=== PATIENT | male | born 1950 | race Two or more races ===

== ENCOUNTER → 2017-03-29 | Outpatient (CLI) | payer MEDICARE, OTHER ==
[~2017-03-29] MED LIST: ASPI-482 PO; FERR-26 PO; GLIM2TAB2 PO; LISI-338 PO; NIFE60TA16 PO; TAMS0.4C2 PO; TRAM50TA PO
[2017-03-29 09:16] LABS: BASO # 0.1 x10^3/uL (0.0-0.2); BASO % 3 % (0-3); EOS % 11 % (0-3); HEMATOCRIT 40.1 % (39.0-53.0); HEMOGLOBIN 13.8 g/dL (13.0-17.5); LYMPH # 1.5 x10^3/uL (1.0-4.8); LYMPH % 29 % (24-48); MEAN CORPUSCULAR HEMOGLOBIN 31 pg (25-35); MEAN CORPUSCULAR HGB CONC 34 g/dL (31-37); MEAN CORPUSCULAR VOLUME 90 fL (79-100); MONO % 10 % (0-9); NEUT % 47 % (31-73); PLATELET COUNT 317 x10^3/uL (140-400); RED BLOOD COUNT 4.45 x10^6/uL (4.30-5.70); RED CELL DISTRIBUTION WIDTH 14.2 % (11.5-14.5); WHITE BLOOD COUNT 5.1 x10^3/uL (4.0-11.0)
[2017-03-29 09:17] LABS: ALBUMIN 3.8 g/dL (3.4-5.0); CALCIUM 8.9 mg/dL (8.5-10.1); GFR 74.8
[2017-03-29 09:18] LABS: BILIRUBIN,URINE NEGATIVE (NEG); GLUCOSE,URINE NEGATIVE (NEG); NITRITE,URINE NEGATIVE (NEG); PROTEIN,URINE NEGATIVE (NEG-TRACE); UROBILINOGEN,URINE 0.2 mg/dL (0.2 mg/dL)
[2017-03-29 09:27] LABS: INR 1.1 (0.8-1.1); PROTHROMBIN TIME PATIENT 13.4 SEC (11.7-14.0)
[2017-03-29 09:50] LABS: BACTERIA,URINE 0 /HPF (0-FEW); SQUAMOUS EPITHELIAL CELL,UR FEW /LPF; WBC,URINE RARE /HPF (0-4)
--- NOTE | 2017-03-29 13:30 | RAD ---
Indication preop. Anticipated knee replacement. PA and lateral views of the chest were obtained. Comparison is made to an examination November 07, 2009. The heart and pulmonary vessels appear normal. The lungs are clear of acute infiltrates. There is no pleural fluid or pneumothorax. There has not been a significant change when compared to the previous exam. IMPRESSION: No acute or focal process. No significant change
--- NOTE | 2017-03-29 14:07 | EKG ---
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
== END | disposition home or self-care (01) ==
LOC: SURGPAT 10:58
PROVIDERS: ATTEND Orthopaedic Surgery
DX: Z01.818 Encounter for other preprocedural examination (principal); I10 Essential (primary) hypertension; M17.31 Unilateral post-traumatic osteoarthritis, right knee
CPT/HCPCS: 36415; 71020; 80048; 81001; 82040; 85027; 85610; 85651; 85730; 87086; 87641; 93005

== ENCOUNTER 2017-04-20 05:55 | Inpatient (IN) | payer MEDICARE, OTHER ==
[2017-04-20] VITALS (9 sets, daily range): BP systolic 120–150; BP diastolic 70–84
[~2017-04-20] VITALS: Ht 167.6 cm; Wt 83.9 kg
[2017-04-20] MEDS ORDERED: MORPHINE SULFATE 5 MG, KETOROLAC TROMETHAMINE 30 MG, ROPIVacaine 0.5% PF 60 ML, EPINEPH... INT ART ONE ×5 (06:00)
[2017-04-20] MEDS ORDERED: TRANEXAMIC ACID 1,000 MG in IV NS 50ML -- 1ST BAG INJ ONE (06:00)
[2017-04-20] MEDS ORDERED: HYDROcodone/APAP 7.5/325MG 1 TAB TABLET PO PRN (06:00)
[2017-04-20] MEDS ORDERED: MELOXICAM 7.5 MG TABLET PO PRN (06:00)
[2017-04-20] MEDS ORDERED: PROPOFOL 20 ML IV ONE (06:58)
[2017-04-20] MEDS ORDERED: fentaNYL PF VIAL 100 MCG/2 ML VIAL ONE ×2 (06:58→09:01)
[2017-04-20] MEDS ORDERED: LIDOCAINE 2% PF Vial for OR 5 ML VIAL. ONE (06:58)
[2017-04-20] MEDS ORDERED: PROCHLORPERAZINE 10 MG/2 ML VIAL. IV PRN ×2 (07:00→12:30)
[2017-04-20] MEDS ORDERED: LIDOCAINE 1% 1 ML SYRINGE. ID PRN (07:00)
[2017-04-20] MEDS ORDERED: IV RINGERS,LACTATED 1000ML 1,000 ML IV SCH (07:00)
[2017-04-20] MEDS ORDERED: HYDROmorphone 2 MG/ML VIAL IV PRN (07:00)
[2017-04-20] MEDS ORDERED: ONDANSETRON PF 4 MG/2 ML VIAL. IV PRN (07:00)
[2017-04-20] MEDS ORDERED: fentaNYL PF VIAL 100 MCG/2 ML VIAL IV PRN ×3 (07:00→12:30)
[2017-04-20] MEDS ORDERED: MORPHINE SULFATE 2 MG/ML DISP.SYRIN. IV PRN ×2 (07:00→12:30)
[2017-04-20 07:26] LABS: INR 1.1 (0.8-1.1); PROTHROMBIN TIME PATIENT 13.6 SEC (11.7-14.0)
[2017-04-20] MEDS ORDERED: ONDANSETRON PF 4 MG/2 ML VIAL. ONE (07:50)
[2017-04-20] MEDS ORDERED: SEVOFLURANE 61 TO 120 MINUTES. IH ONE (07:50)
[2017-04-20] MEDS ORDERED: DEXAMETHASONE SOD PHOS 20 MG/5 ML VIAL. ONE (07:50)
[2017-04-20] MEDS ORDERED: ePHEDrine PF IN SALINE 50 MG/5 ML DISP.SYRIN IV ONE (08:00)
[2017-04-20] MEDS ORDERED: TRANEXAMIC ACID 1,000 MG in IV NS 50ML -- 2ND BAG INJ ONE (08:00)
[2017-04-20] MEDS: fentaNYL PF VIAL 100 MCG/2 ML VIAL IV PRN ×2 (10:29→10:43)
[2017-04-20] MEDS ORDERED: INSULIN ASPART 100 UNIT/ML 10ML VIAL. SQ ONE ×2 (11:09→11:30)
[2017-04-20] MEDS ORDERED: PNEUMOCOCCAL VAX SCREEN BY RX. MC ONE (12:15)
[2017-04-20] MEDS ORDERED: IV DEXTROSE 5 %-0.45 % NACL 1,000 ML IV SCH (12:28)
[2017-04-20] MEDS ORDERED: oxyCODONE/APAP 5/325 1 TAB TABLET PO PRN (12:30)
[2017-04-20] MEDS ORDERED: MORPHINE SULFATE 4 MG/ML DISP.SYRIN. IV PRN (12:30)
[2017-04-20] MEDS ORDERED: diphenhydrAMINE 50 MG/ML VIAL IV PRN (12:30)
[2017-04-20] MEDS ORDERED: traMADol 50 MG TABLET PO PRN ×2 (12:30)
[2017-04-20] MEDS ORDERED: HYDROcodone/APAP 10/325 1 TAB TABLET PO PRN (12:30)
[2017-04-20] MEDS ORDERED: oxyCODONE/APAP 7.5/325 1 TAB TABLET PO PRN (12:30)
[2017-04-20] MEDS ORDERED: ZOLPIDEM 5 MG TABLET. PO PRN (12:30)
[2017-04-20] MEDS ORDERED: ACETAMINOPHEN 325 MG TABLET. PO PRN (12:30)
[2017-04-20] MEDS ORDERED: DEXTROSE 50% 25 GM / 50ML DISP.SYRIN. IV PRN (12:30)
[2017-04-20] MEDS ORDERED: CALCIUM CARBONATE 500 MG TAB.CHEW PO PRN (12:30)
[2017-04-20] MEDS ORDERED: 0.9 % SODIUM CHLORIDE 10 ML DISP.SYRIN. IV PRN (12:30)
--- NOTE | 2017-04-20 12:59 | PDOC ---
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 We had discussed risks benefits and postoperative course of total knee arthroplasty including the possibility of infection nerve or blood vessel damage medical or other anesthetic complications premature wear or loosening continued pain among others all his questions were answered he wants to proceed with surgical evaluation and treatment Operative text: Patient was identified procedure verified after adequate amounts of general anesthesia were administered the right lower extremity was prepped and draped in standard sterile fashion with a thigh tourniquet. After timeout was performed patient procedure identified and verified, a midline incision was made medial parapatellar approach was carried out patella was everted fat pad was excised bleeding points were controlled by electrocautery and using the [employer] device distal femur was drilled for an intramedullary guide and due to his significant flexion contracture an additional 2 mm was taken off distally. Femur was sized at a size 8 AP and chamfer cuts were then made with the ACL excised PCL preserved menisci were excised and the extra medullary tibial cutting guide was then placed and aligned slightly below the level of the medial tibial erosion. Tibial cut was made and a size G tibial guide was pinned in place a size 8 femur and a 10 mm spacer to picking tech ligament balance flexion and extension stability. Patella was then measured at a 24 mm thickness postresection was 13 mm. A 35 mm patellar button was medialized with lateral bone removed to prevent any bony impingement. Patellar tracking was noted to be excellent. Femoral lug holes was then drilled tibia was drilled and broached trial components were removed irrigation carried out normal saline solution and bleeding points were controlled with the aqua Mantis device in the intracapsular area bony surfaces were then dried and the following Priya persona components were placed with polymethylmethacrylate cement consisting of a size G tibia a size 8 standard femur and a 35 mm vitamin E patella. A 10 mm spacer was placed with the knee held out in extension where excess cement was removed and held until the knee was stable and cement cured. Any excess cement was removed from the edges particularly of the tibial component and a 10 mm medial congruent vitamin E spacer was snapped and locked in place again excellent balance stability was noted in both flexion and extension as well as patellar tracking. Additional thorough irrigation was carried out normal saline solution using pulse lavage control bleeding points was again checked Hemovac drain was placed as was a pain catheter the pain catheter mixture was injected into the joint capsule and surrounding areas closure of the retinaculum was accomplished with #2 Ethibond in an interrupted fashion supported by #1 Vicryl in an interrupted and running fashion for additional support. Subcutaneous closure accomplished with buried Vicryl suture skin closure with mónica sterile dressings were applied tourniquet was not applied throughout the procedure patient was returned to recovery room in stable condition having tolerated the procedure well YESENIA GRAY MD Apr 20, 2017 12:59
[2017-04-20] MEDS: MULTIVITAMIN with MINERAL TABLET. PO SCH (13:43)
[2017-04-20] MEDS: LISINOPRIL 5 MG TABLET. PO SCH (13:44)
[2017-04-20] MEDS: SENNOSIDES/DOCUSATE 8.6/50MG TABLET. PO SCH (13:44)
--- NOTE | 2017-04-20 13:52 | RAD ---
Portable right knee, 2 views, 04/20/2017: History: Postop evaluation Comparison is made to a study from 03/17/2017. There has been interval insertion of a total knee prosthesis in satisfactory position. There is an old healed fracture of the distal right femoral shaft with a screw fragment and a fragment of a surgical band in place at that level. Surgical skin clips and a drain overlie the operative site anteriorly at the knee. There is no evidence of a retained surgical instrument, needle or radiopaque sponge on these 2 views.
[2017-04-20] MEDS ORDERED: GLIMEPIRIDE 2 MG TABLET. PO SCH (14:00)
[2017-04-20] MEDS ORDERED: WARFARIN 7.5 MG TABLET. PO ONE (16:00)
[2017-04-20] MEDS: KETOROLAC TROMETHAMINE 10 MG TABLET PO SCH (16:57)
[2017-04-20] MEDS: FERROUS SULFATE 325 MG TABLET. PO SCH (16:58)
[2017-04-20] MEDS: TAMSULOSIN 0.4 MG CAP.ER.24H. PO SCH (21:08)
[2017-04-21 02:56] VITALS: BP 121/71
[2017-04-21 04:52] LABS: INR 1.4 (0.8-1.1); PROTHROMBIN TIME PATIENT 16.7 SEC (11.7-14.0)
[2017-04-21] MEDS: KETOROLAC TROMETHAMINE 10 MG TABLET PO SCH ×4 (05:41→17:55)
[2017-04-21] MEDS ORDERED: MAGNESIUM HYDROXIDE 2,400 MG/30 ML ORAL.SUSP. PO PRN (06:00)
[2017-04-21 06:27] VITALS: BP 131/82
[2017-04-21] MEDS ORDERED: FERROUS SULFATE 325 MG TABLET. PO SCH (09:00)
[2017-04-21] MEDS: SENNOSIDES/DOCUSATE 8.6/50MG TABLET. PO SCH (09:09)
[2017-04-21] MEDS: ASPIRIN ENTERIC COATED 81 MG TABLET.DR. PO SCH (09:09)
[2017-04-21] MEDS: FERROUS SULFATE 325 MG TABLET. PO SCH ×2 (09:09→16:51)
[2017-04-21] MEDS: MULTIVITAMIN with MINERAL TABLET. PO SCH (09:09)
[2017-04-21] MEDS: GLIMEPIRIDE 2 MG TABLET. PO SCH (09:09)
[2017-04-21] MEDS: LISINOPRIL 5 MG TABLET. PO SCH (09:10)
[2017-04-21] MEDS ORDERED: BISACODYL 10 MG SUPP.RECT. PR PRN (16:00)
[2017-04-21] MEDS ORDERED: WARFARIN 5 MG TABLET. PO ONE (16:00)
--- NOTE | 2017-04-21 17:13 | PDOC ---
PROGRESS NOTES Subjective Subjective Problems overnight: Pain is well-controlled he is very pleased with his progress getting up and around well. Feels better than he did before surgery Objective Vital Signs Vital Signs Date Time Temp Pulse Resp B/P (MAP) Pulse Ox O2 Delivery O2 Flow Rate FiO2 04/21/17 09:10 62 131/82 04/21/17 08:00 Room Air 04/21/17 06:27 98.5 20 94 98.5 04/20/17 11:23 2 Physical Exam On exam drain and pain catheter intact he has excellent motion stability distal neurovascular status intact incision clean dry intact Labs Laboratory Tests Test 04/20/17 06:30 04/20/17 06:40 04/20/17 10:23 04/20/17 10:24 Prothrombin Time 13.6 SEC (11.7-14.0) Prothromb Time International Ratio 1.1 (0.8-1.1) Activated Partial Thromboplast Time 29 SEC (24-38) Glucose (Fingerstick) 106 mg/dL (70-99) 231 mg/dL (70-99) 218 mg/dL (70-99) Test 04/20/17 10:58 04/20/17 16:49 04/20/17 20:30 04/21/17 03:50 Glucose (Fingerstick) 230 mg/dL (70-99) 186 mg/dL (70-99) 176 mg/dL (70-99) Hemoglobin 10.9 g/dL (13.0-17.5) Prothrombin Time 16.7 SEC (11.7-14.0) Prothromb Time International Ratio 1.4 (0.8-1.1) Test 04/21/17 06:40 04/21/17 11:07 04/21/17 16:42 Glucose (Fingerstick) 108 mg/dL (70-99) 128 mg/dL (70-99) 127 mg/dL (70-99) Laboratory Tests Test 04/20/17 20:30 04/21/17 03:50 04/21/17 06:40 04/21/17 11:07 Glucose (Fingerstick) 176 mg/dL (70-99) 108 mg/dL (70-99) 128 mg/dL (70-99) Hemoglobin 10.9 g/dL (13.0-17.5) Prothrombin Time 16.7 SEC (11.7-14.0) Prothromb Time International Ratio 1.4 (0.8-1.1) Test 04/21/17 16:42 Glucose (Fingerstick) 127 mg/dL (70-99) Imaging Postop x-rays show total knee arthroplasty in excellent position Assessment Assessment POD# [1], S/P [right total knee arthroplasty] Problems: Plan Plan of Care Continue to advance physical therapy weightbearing as tolerated Coumadin anticoagulation YESENIA GRAY MD Apr 21, 2017 17:12
[2017-04-21 18:03] VITALS: BP 130/72
[2017-04-21] MEDS: HYDROcodone/APAP 7.5/325MG 1 TAB TABLET PO PRN (19:49)
[2017-04-21] MEDS: TAMSULOSIN 0.4 MG CAP.ER.24H. PO SCH (21:00)
[2017-04-22] MEDS: HYDROcodone/APAP 7.5/325MG 1 TAB TABLET PO PRN ×4 (00:59→21:05)
[2017-04-22] MEDS: KETOROLAC TROMETHAMINE 10 MG TABLET PO SCH ×4 (00:59→18:15)
[2017-04-22 06:10] VITALS: BP 126/66
[2017-04-22 07:23] LABS: HEMATOCRIT 30.2 % (39.0-53.0); HEMOGLOBIN 10.1 g/dL (13.0-17.5)
[2017-04-22 07:33] LABS: INR 1.5 (0.8-1.1); PROTHROMBIN TIME PATIENT 17.5 SEC (11.7-14.0)
[2017-04-22] MEDS: MULTIVITAMIN with MINERAL TABLET. PO SCH (08:29)
[2017-04-22] MEDS: SENNOSIDES/DOCUSATE 8.6/50MG TABLET. PO SCH (08:29)
[2017-04-22] MEDS: ASPIRIN ENTERIC COATED 81 MG TABLET.DR. PO SCH (08:30)
[2017-04-22] MEDS: FERROUS SULFATE 325 MG TABLET. PO SCH ×2 (08:30→16:44)
[2017-04-22] MEDS: GLIMEPIRIDE 2 MG TABLET. PO SCH (08:30)
[2017-04-22] MEDS: LISINOPRIL 5 MG TABLET. PO SCH (08:31)
--- NOTE | 2017-04-22 14:45 | PDOC ---
ORTHO PROGRESS NOTES Subjective Patient reports that he is doing well. Pain is well-controlled. Denies numbness or tingling. Denies chest pain or shortness of breath. He is doing well with therapy Post-op Day: 2 (Right total knee arthroplasty) Vitals Vital Signs Date Time Temp Pulse Resp B/P (MAP) Pulse Ox O2 Delivery O2 Flow Rate FiO2 04/22/17 14:05 Room Air 04/22/17 08:31 65 126/66 04/22/17 06:10 98.4 18 95 98.4 Labs Laboratory Tests Test 04/20/17 16:49 04/20/17 20:30 04/21/17 03:50 04/21/17 06:40 Glucose (Fingerstick) 186 mg/dL (70-99) 176 mg/dL (70-99) 108 mg/dL (70-99) Hemoglobin 10.9 g/dL (13.0-17.5) Prothrombin Time 16.7 SEC (11.7-14.0) Prothromb Time International Ratio 1.4 (0.8-1.1) Test 04/21/17 11:07 04/21/17 16:42 04/21/17 20:58 04/22/17 05:50 Glucose (Fingerstick) 128 mg/dL (70-99) 127 mg/dL (70-99) 157 mg/dL (70-99) 100 mg/dL (70-99) Test 04/22/17 06:56 04/22/17 10:44 Hemoglobin 10.1 g/dL (13.0-17.5) Hematocrit 30.2 % (39.0-53.0) Mean Corpuscular Hemoglobin Concent 34 g/dL (31-37) Prothrombin Time 17.5 SEC (11.7-14.0) Prothromb Time International Ratio 1.5 (0.8-1.1) Glucose (Fingerstick) 170 mg/dL (70-99) Laboratory Tests Test 04/21/17 16:42 04/21/17 20:58 04/22/17 05:50 04/22/17 06:56 Glucose (Fingerstick) 127 mg/dL (70-99) 157 mg/dL (70-99) 100 mg/dL (70-99) Hemoglobin 10.1 g/dL (13.0-17.5) Hematocrit 30.2 % (39.0-53.0) Mean Corpuscular Hemoglobin Concent 34 g/dL (31-37) Prothrombin Time 17.5 SEC (11.7-14.0) Prothromb Time International Ratio 1.5 (0.8-1.1) Test 04/22/17 10:44 Glucose (Fingerstick) 170 mg/dL (70-99) Notes Patient is awake and alert sitting up in chair. Breathing unlabored, no acute distress. Incision covered with dressing, dressing is intact no significant drainage. Moderate edema. Neurovascular intact right lower extremity Problems: (1) Degenerative joint disease of right knee Assessment and Plan Anticoagulation per pharmacy Pain controlled Anticipate discharge tomorrow Weightbearing as tolerated, PT OT Problem Qualifiers (1) Degenerative joint disease of right knee: Osteoarthritis type: primary Qualified Codes: M17.11 - Unilateral primary osteoarthritis, right knee KENNY TEIXEIRA SALESFORCE CONSULTANT Apr 22, 2017 14:45
--- NOTE | 2017-04-22 15:35 | PATHOLOGY ---
PATHOLOGY REPORT * * * * * * * * FINAL DIAGNOSIS: Bone and soft tissue, "right knee bone and tissue," joint resection: - Degeneration of cartilage consistent with degenerative joint disease. - Chronic synovitis. ([facility]; 04/22/2017) REPORT ELECTRONICALLY SIGNED BY: Brian Yoon M.D. DATE/TIME: 04/22/2017 15:34 * * * * * * * * GROSS PATHOLOGY: Received in formalin labeled "Navdeep Bach, right knee bone and tissue," are multiple segments of bone, including tibial plateau, measuring 10.8 x 9.9 x 2.9 cm in aggregate dimensions admixed with soft tissue; meniscus is present. The specimen shows focal eburnation of the articular surfaces. Mine Engineering Supervisor sections of bone and soft tissue are submitted in cassette A1, following decalcification. ([facility]; 04/21/2017) INITIAL CPT CODE(S): A; 15089, 56737 Professional services performed [place] [facility] [place] [address] Technical services performed by [facility] at [address] [place] [address]. SPECIMEN(S) RECEIVED: A.Right knee bone and tissue CLINICAL HISTORY: Post traumatic OA PATIENT: STEPHANIE BACH /AGE: 3 1950 (Age: 67) PATIENT #: [id number] ALT CASE #: SPECIMEN COLLECTION DATE: 04/20/2017 SPECIMEN RECEIVED DATE: 04/20/2017 [facility] - [address] [place] [address] - PHONE: [phone] * * * END OF REPORT * * *
[2017-04-22] MEDS ORDERED: WARFARIN 5 MG TABLET. PO ONE (16:00)
[2017-04-22 18:02] VITALS: BP 129/65
[2017-04-22] MEDS: TAMSULOSIN 0.4 MG CAP.ER.24H. PO SCH (21:01)
[2017-04-23] MEDS: KETOROLAC TROMETHAMINE 10 MG TABLET PO SCH ×3 (00:06→12:16)
[2017-04-23 06:08] VITALS: BP 121/70
[2017-04-23 07:40] LABS: HEMATOCRIT 26.4 % (39.0-53.0); HEMOGLOBIN 9.2 g/dL (13.0-17.5)
[2017-04-23 07:50] LABS: INR 1.7 (0.8-1.1); PROTHROMBIN TIME PATIENT 18.5 SEC (11.7-14.0)
[2017-04-23] MEDS: FERROUS SULFATE 325 MG TABLET. PO SCH (08:04)
[2017-04-23] MEDS: SENNOSIDES/DOCUSATE 8.6/50MG TABLET. PO SCH (08:05)
[2017-04-23] MEDS: GLIMEPIRIDE 2 MG TABLET. PO SCH (08:05)
[2017-04-23] MEDS: ASPIRIN ENTERIC COATED 81 MG TABLET.DR. PO SCH (08:06)
[2017-04-23] MEDS: LISINOPRIL 5 MG TABLET. PO SCH (08:06)
[2017-04-23] MEDS: MULTIVITAMIN with MINERAL TABLET. PO SCH (08:07)
[2017-04-23] MEDS ORDERED: HYDR-2762 PO (11:06)
--- NOTE | 2017-04-23 11:42 | PDOC ---
PROGRESS NOTES Subjective Subjective Problems overnight: Doing very well with therapy pain well-controlled no complaints Objective Vital Signs Vital Signs Date Time Temp Pulse Resp B/P (MAP) Pulse Ox O2 Delivery O2 Flow Rate FiO2 04/23/17 08:07 71 121/70 04/23/17 06:08 98.4 16 94 Room Air 98.4 04/20/17 11:23 2 Physical Exam On exam incision clean dry intact has excellent range of motion stability improving strength intact distal neurovascular status Labs Laboratory Tests Test 04/21/17 16:42 04/21/17 20:58 04/22/17 05:50 04/22/17 06:56 Glucose (Fingerstick) 127 mg/dL (70-99) 157 mg/dL (70-99) 100 mg/dL (70-99) Hemoglobin 10.1 g/dL (13.0-17.5) Hematocrit 30.2 % (39.0-53.0) Mean Corpuscular Hemoglobin Concent 34 g/dL (31-37) Prothrombin Time 17.5 SEC (11.7-14.0) Prothromb Time International Ratio 1.5 (0.8-1.1) Test 04/22/17 10:44 04/22/17 16:39 04/22/17 20:45 04/23/17 06:45 Glucose (Fingerstick) 170 mg/dL (70-99) 163 mg/dL (70-99) 150 mg/dL (70-99) Hemoglobin 9.2 g/dL (13.0-17.5) Hematocrit 26.4 % (39.0-53.0) Mean Corpuscular Hemoglobin Concent 35 g/dL (31-37) Prothrombin Time 18.5 SEC (11.7-14.0) Prothromb Time International Ratio 1.7 (0.8-1.1) Laboratory Tests Test 04/22/17 16:39 04/22/17 20:45 04/23/17 06:45 Glucose (Fingerstick) 163 mg/dL (70-99) 150 mg/dL (70-99) Hemoglobin 9.2 g/dL (13.0-17.5) Hematocrit 26.4 % (39.0-53.0) Mean Corpuscular Hemoglobin Concent 35 g/dL (31-37) Prothrombin Time 18.5 SEC (11.7-14.0) Prothromb Time International Ratio 1.7 (0.8-1.1) Assessment Assessment POD# [3], S/P [right total knee arthroplasty] Problems: Plan Plan of Care Discharge home today Likely outpatient physical therapy if he can arrange a ride, otherwise home health physical therapy follow-up Coumadin anticoagulation YESENIA GRAY MD Apr 23, 2017 11:42
[2017-04-23 11:45] VITALS: BP 124/71
--- NOTE | 2017-04-23 11:46 | PDOC3 ---
DISCHARGE SUMMARY DISCHARGE SUMMARY: Date of admission: April 20, 2017 Date of discharge April 23, 2017 Principal diagnosis degenerative joint disease right knee Procedures right total knee arthroplasty Activity restrictions standard total knee protocol full weightbearing Follow-up Dr. Marie 2 weeks postoperatively Discharge medications include Clymer 7.5/325 one by mouth every 4 hours when necessary more severe pain, tramadol 50 mg by mouth every 4 hours when necessary lesser pain Coumadin dosed per anticoagulation clinic Resume other preoperative medications Brief description of Hospital course patient underwent an uncomplicated right total knee arthroplasty, postoperatively did very well with physical therapy pain was well-controlled laboratory values and vital signs remained stable he progressed well through physical therapy safely negotiating activities of daily living and transfers as well as ambulation. Pain is well-controlled and he was discharged home today in stable condition YESENIA MARIE MD Apr 23, 2017 11:46
[2017-04-23] MEDS ORDERED: WARFARIN 3 MG TABLET. PO ONE (14:00)
== END 2017-04-23 14:15 | disposition home or self-care (01) | DRG 470 ==
LOC: OPSVCIP 05:55 → 4 SOUTHEST 11:41
PROVIDERS: ADMIT Orthopaedic Surgery; ATTEND Orthopaedic Surgery
PROC: 0SRC0J9 Replacement of Right Knee Joint with Synthetic Substitute, Cemented, Open Approach (ICD-10-PCS; principal; 2017-04-20 07:30)
DX: M17.11 Unilateral primary osteoarthritis, right knee (principal)
CPT/HCPCS: 36415; 73560; 82962; 85014; 85018; 85610; 85730; 86850; 86900; 86901; 88305; 88311; J0171; J0690; J1100; J1885; J2001; J2270; J2405; J2704; J2795; J3010; J3490; J7030; J7120; 97150; 97530; 97535; C1769

== ENCOUNTER 2018-10-19 05:59 | Observation (INO) | payer MEDICARE ==
[~2018-10-19] VITALS: Ht 152.4 cm; Wt 86.7 kg
[2018-10-19] VITALS (11 sets, daily range): BP systolic 125–170; BP diastolic 62–102
[~2018-10-19 05:59] MED LIST changes: +AMIT50TA PO; -FERR-26 PO; +FERR325T14 PO; +HYDR-2765 PO
[2018-10-19] MEDS ORDERED: BACITRACIN 50,000 UNIT in IV NORMAL SALINE 500ML BAG 500 ML IRR ONE (06:00)
[2018-10-19] MEDS ORDERED: BUPIVAC MPF-EPI 0.5%-1:200000 30 ML VIAL. ONE (06:57)
[2018-10-19] MEDS ORDERED: ONDANSETRON PF 4 MG/2 ML VIAL. IV PRN ×2 (07:00→10:00)
[2018-10-19] MEDS ORDERED: PROCHLORPERAZINE 10 MG/2 ML VIAL. IV PRN (07:00)
[2018-10-19] MEDS ORDERED: MORPHINE SULFATE 4 MG/ML VIAL. IV PRN (07:00)
[2018-10-19] MEDS ORDERED: fentaNYL PF VIAL 100 MCG/2 ML VIAL IV PRN (07:00)
[2018-10-19] MEDS ORDERED: IV RINGERS,LACTATED 1000ML 1,000 ML IV SCH (07:00)
[2018-10-19] MEDS ORDERED: LIDOCAINE 1% PF 2 ML VIAL. ID PRN (07:00)
[2018-10-19] MEDS ORDERED: SCOPOLAMINE 1.5MG PATCH. TD SCH (07:00)
[2018-10-19] MEDS ORDERED: HYDROmorphone 2 MG/ML VIAL IV PRN ×2 (07:00→10:00)
[2018-10-19] MEDS ORDERED: ROCURONIUM 50 MG/5 ML VIAL. ONE (07:05)
[2018-10-19] MEDS ORDERED: LIDOCAINE 2% PF Vial for OR 5 ML VIAL. ONE (07:05)
[2018-10-19] MEDS ORDERED: PROPOFOL 20 ML IV ONE (07:05)
[2018-10-19] MEDS ORDERED: fentaNYL PF VIAL 100 MCG/2 ML VIAL ONE ×2 (07:05→08:50)
[2018-10-19] MEDS ORDERED: SUCCINYLCHOLINE 200 MG/10 ML VIAL. ONE (07:05)
[2018-10-19] MEDS ORDERED: DESFLURANE 31 TO 60 MINUTES IH ONE (07:44)
[2018-10-19] MEDS ORDERED: ONDANSETRON PF 4 MG/2 ML VIAL. ONE (07:44)
[2018-10-19] MEDS ORDERED: DEXAMETHASONE SOD PHOS 20 MG/5 ML VIAL. ONE (07:44)
[2018-10-19] MEDS ORDERED: PHENYLEPHRINE in 0.9% NACL PF 1 MG/10 ML SYRINGE. IV ONE (08:01)
[2018-10-19] MEDS ORDERED: ePHEDrine PF IN SALINE 50 MG/5 ML DISP.SYRIN IV ONE (08:06)
[2018-10-19] MEDS ORDERED: NEOSTIGMINE 10 MG/10 ML VIAL. ONE (08:22)
[2018-10-19] MEDS ORDERED: GLYCOPYRROLATE 1 MG/5 ML VIAL. ONE (08:22)
[2018-10-19] MEDS ORDERED: IV 1/2 NORMAL SALINE 1,000 ML IV SCH (09:50)
[2018-10-19] MEDS ORDERED: oxyCODONE/APAP 5/325 1 TAB TABLET PO PRN (10:00)
[2018-10-19] MEDS ORDERED: 0.9 % SODIUM CHLORIDE 10 ML DISP.SYRIN. IV PRN (10:00)
--- NOTE | 2018-10-19 10:02 | PDOC4 ---
Operative Note Operative Note Operative Note: Preoperative Diagnosis: Bilateral inguinal hernias Postoperative Diagnosis: Same Procedure: Repair of bilateral inguinal hernias with mesh Surgeon: Hever Assistant Professor Nurse Education: Leigh ZIMMER Anesthesia: Gen. EBL: 25 mL Specimen: Left hernia sac to pathology, right cord lipoma to pathology Drains: None Complications: None Indication: The patient is a 68-year-old male who presented with large bilateral inguinal hernias. He was offered surgical repair. The risks of surgery were discussed which include bleeding, infection, recurrence, pain, anesthetic risk, potential need for additional surgery or procedure. He understands and would like to proceed. Description: The patient was taken to the operating room and placed supine on the operating table. Gen. anesthesia was performed. The bilateral inguinal regions were shaved and prepped with ChloraPrep and draped in a standard surgical manner. Beginning on the patient's left side an incision was made in the groin with a scalpel. Cautery dissection was carried down to the external oblique. The aponeurosis was opened down to the external ring. The patient had a large amount of contents extending into the scrotal area. I was able to manually reduce this back to the abdominal cavity. The contents of the inguinal canal were then digitally mobilized and encircled with a Los drain. The vas deferens and other cord structures were identified and preserved. There was a large indirect redundant hernia sac identified near the cord structures. The sac was fully mobilized down to its base. The majority of the sac was excised and the stump was suture ligated with 2-0 Vicryl. The excised portion was sent to pathology. The sac stump was then inverted and an extra large Phasix mesh plug was placed filling the defect. The plug was secured around its periphery with 2-0 Vicryl. The entire inguinal floor was then reinforced with a Prolene keyhole mesh. The mesh was sutured into position with 2-0 Vicryl anchoring it to the shelving edge of inguinal ligament inferiorly and the internal oblique superiorly. A slit was made to accommodate the cord structures. The external oblique was closed over the mesh with 2-0 Vicryl. The subcutaneous tissue was closed with 3-0 Vicryl. The skin was approximated with 4-0 Monocryl. The side was covered with a towel and we moved to the right side. An incision was made in the skin lines with a scalpel. Cautery dissection was again carried to the external oblique. The aponeurosis was opened down to the external ring. The contents of the inguinal canal were again mobilized and encircled with a Los drain. There was a sizable cord lipoma that was excised and sent to pathology. On this side the patient had a moderate to large direct hernia defect with no evidence of an indirect sac. The defect was fully mobilized down to its base. The attenuated transversalis fascia was opened entering the preperitoneal space. The defect was filled with an extra large Phasix mesh plug. The plug was sutured around its periphery with 2-0 Vicryl. The inguinal floor was reinforced with a Prolene keyhole mesh patch that was sutured into position in a similar manner as the opposite side. The external oblique was closed over the mesh with 2-0 Vicryl. The subcutaneous tissue was closed with 3- 0 Vicryl and the skin was approximated with 4-0 Monocryl. Both incisions were infiltrated with half percent Marcaine with epinephrine. Steri-Strips and sterile dressings were applied. The patient tolerated the procedure well and was sent to the recovery room in stable condition. At the end of the case all counts were correct. STEVEN JACKMAN MD Oct 19, 2018 10:02
[2018-10-19] MEDS: fentaNYL PF VIAL 100 MCG/2 ML VIAL IV PRN ×4 (10:23→10:54)
--- NOTE | 2018-10-19 12:00 | NUR ---
Pt admitted from PACU via bed. Post op bilateral inguinal hernia repair. A&O X4, VSS on 2L of O2, c/o pain 04/19. Dressing CDI with ice pack. Completed admission assessment. SCDS plugged in. Water pitcher filled. Meal tray ordered. No belongings besides clothing left in the room. took valuables and cell phone home. Call light within reach. Family at bedside. Oriented to unit and routines. Will continue to monitor.
[2018-10-19] MEDS: oxyCODONE/APAP 5/325 1 TAB TABLET PO PRN ×2 (15:06→19:25)
--- NOTE | 2018-10-19 16:02 | PDOC2 ---
CONSULT Date of Consult Date of Consult DATE: 10/19/18 TIME: 15:46 Reason for Consult Reason for Consult: medical co-management Identification/Chief Complaint Problems: (1) HTN (hypertension) (2) Hyperglycemia Source Source: Patient History of Present Illness Reason for Visit: Very pleasant 68 year old admitted for inguinal hernia repair. hospitalist consulted for medical co-management. patient has HTN, pre-diabetes, BPH. no hx of CAD, HLD. patient takes lisinopril 5 mg and nifedipine 60 mg for HTN. also on ASA and tamsulosin. not on meds for diabetes no complaints. has lower abdominal discomfort from sx but otherwise feels fine. sugars elevated at 255. not on insulin therapy at home. says last a1c 5.9%. Past Medical History Cardiovascular: HTN Endocrine: Diabetes Family History Family History denies Social History No Drugs: None Lives: with Family Domestic Violence: Neg Current Medications Current Medications Current Medications Bacitracin 52971 unit/Sodium Chloride 500 ml @ 500 mls/hr 1X ONCE IRR Last administered on 10/19/18at 08:05; Start 10/19/18 at 06:00; Stop 10/19/18 at 06:59; Status DC Ondansetron HCl (Zofran) 4 mg PRN Q6HRS PRN IV NAUSEA/VOMITING; Start 10/19/18 at 07:00; Stop 10/20/18 at 06:59 Fentanyl Citrate (Fentanyl 2ml Vial) 25 mcg PRN Q5MIN PRN IV MILD PAIN; Start 10/19/18 at 07:00; Stop 10/20/18 at 06:59 Fentanyl Citrate (Fentanyl 2ml Vial) 50 mcg PRN Q5MIN PRN IV MODERATE TO SEVERE PAIN Last administered on 10/19/18at 10:54; Start 10/19/18 at 07:00; Stop at 06:59 Morphine Sulfate (Morphine Sulfate) 1 mg PRN Q10MIN PRN IV SEVERE PAIN; Start 10/19/18 at 07:00; Stop 10/20/18 at 06:59 Ringer's Solution 1,000 ml @ 30 mls/hr Q24H IV Last administered on 10/19/18at 06:37; Start 10/19/18 at 07:00; Stop 10/19/18 at 18:59 Lidocaine HCl (Xylocaine-Mpf 1% 2ml Vial) 2 ml PRN 1X PRN ID IV START; Start at 07:00; Stop 10/20/18 at 06:59 Hydromorphone HCl (Dilaudid) 0.5 mg PRN Q10MIN PRN IV SEV PAIN, Second choice; Start 10/19/18 at 07:00; Stop 10/20/18 at 06:59 Prochlorperazine Edisylate (Compazine) 5 mg PACU PRN PRN IV NAUSEA, MRX1; Start 10/19/18 at 07:00; Stop 10/20/18 at 06:59 Cefazolin Sodium/ Dextrose 50 ml @ As Directed STK-MED ONCE IV ; Start 10/19/18 at 06:39; Stop 10/19/18 at 06:40; Status DC Scopolamine (Transderm-Scop) 1 patch Q3DAYS TD ; Start 10/19/18 at 07:00; Stop at 06:59 Bupivacaine HCl/ Epinephrine Bitart (Sensorcain-Mpf Epi 0.5%-1:[id number]) 30 ml STK -MED ONCE .ROUTE Last administered on 10/19/18at 08:10; Start 10/19/18 at 06:57; Stop 10/19/18 at 06:59; Status DC Propofol 20 ml @ As Directed STK-MED ONCE IV ; Start 10/19/18 at 07:05; Stop 10/19 at 07:06; Status DC Lidocaine HCl (Lidocaine Pf 2% Vial) 5 ml STK-MED ONCE .ROUTE ; Start 10/19/18 at 07:05; Stop 10/19/18 at 07:06; Status DC Succinylcholine Chloride (Anectine) 200 mg STK-MED ONCE .ROUTE ; Start 10/19/18 at 07:05; Stop 10/19/18 at 07:06; Status DC Rocuronium Panacea (Zemuron) 50 mg STK-MED ONCE .ROUTE ; Start 10/19/18 at 07:05 ; Stop 10/19/18 at 07:07; Status DC Fentanyl Citrate (Fentanyl 2ml Vial) 100 mcg STK-MED ONCE .ROUTE ; Start at 07:05; Stop 10/19/18 at 07:07; Status DC Dexamethasone Sodium Phosphate (Decadron) 20 mg STK-MED ONCE .ROUTE ; Start 10/19 at 07:44; Stop 10/19/18 at 07:46; Status DC Ondansetron HCl (Zofran) 4 mg STK-MED ONCE .ROUTE ; Start 10/19/18 at 07:44; Stop 10/19/18 at 07:46; Status DC Desflurane (Suprane) 30 ml STK-MED ONCE IH ; Start 10/19/18 at 07:44; Stop at 07:46; Status DC Phenylephrine HCl (PHENYLEPHRINE in 0.9% NACL PF) 1 mg STK-MED ONCE IV ; Start 10/19/18 at 08:01; Stop 10/19/18 at 08:04; Status DC Ephedrine Sulfate (ePHEDrine PF IN SALINE SYRINGE) 50 mg STK-MED ONCE IV ; Start 10/19/18 at 08:06; Stop 10/19/18 at 08:08; Status DC Cefazolin Sodium/ Dextrose 50 ml @ 100 mls/hr 1X ONCE IV ; Start 10/19/18 at 08 :30; Stop 10/19/18 at 08:59; Status DC Neostigmine Methylsulfate (Bloxiverz) 10 mg STK-MED ONCE .ROUTE ; Start 10/19/18 at 08:22; Stop 10/19/18 at 08:23; Status DC Glycopyrrolate (Robinul) 1 mg STK-MED ONCE .ROUTE ; Start 10/19/18 at 08:22; Stop 10/19/18 at 08:24; Status DC Fentanyl Citrate (Fentanyl 2ml Vial) 100 mcg STK-MED ONCE .ROUTE ; Start at 08:50; Stop 10/19/18 at 08:52; Status DC Sodium Chloride (Normal Saline Flush) 3 ml QSHIFT PRN IV AFTER MEDS AND BLOOD DRAWS; Start 10/19/18 at 10:00 Sodium Chloride 1,000 ml @ 80 mls/hr [id number] IV Last administered on 10/19/18at 12:53; Start 10/19/18 at 09:50 Oxycodone/ Acetaminophen (Percocet 5/325) 1 tab PRN Q4HRS PRN PO MILD PAIN, 1ST CHOICE; Start 10/19/18 at 10:00 Oxycodone/ Acetaminophen (Percocet 5/325) 2 tab PRN Q4HRS PRN PO MODERATE PAIN , SEVERE PAIN Last administered on 10/19/18at 15:06; Start 10/19/18 at 10:00 Hydromorphone HCl (Dilaudid) 0.2 mg PRN Q1HR PRN IV PAIN; Start 10/19/18 at 10: 00 Ondansetron HCl (Zofran) 4 mg PRN Q6HRS PRN IV NAUESA, 1ST CHOICE; Start at 10:00 Amitriptyline HCl (Elavil) 50 mg HS PO ; Start 10/19/18 at 21:00 Aspirin (Ecotrin) 81 mg DAILY08 PO ; Start 10/20/18 at 08:00 Tamsulosin HCl (Flomax) 0.4 mg HS PO ; Start 10/19/18 at 21:00 Lisinopril (Prinivil) 5 mg DAILY PO ; Start 10/20/18 at 09:00 Nifedipine (Procardia Xl) 60 mg DAILY PO ; Start 10/20/18 at 09:00 Influenza Virus Vaccine (Afluria Trivalent [id number] Syringe) 0.5 ml ONCE ONCE VAX IM ; Start 10/19/18 at 13:00; Stop 10/19/18 at 13:01; Status DC Active Scripts Active Reported Amitriptyline Hcl 50 Mg Tablet 50 Mg PO HS Aspir 81 (Aspirin) 81 Mg Tablet.dr 81 Mg PO Tamsulosin Hcl 0.4 Mg Cap.er.24h 0.4 Mg PO HS Tramadol Hcl 50 Mg Tablet 50 Mg PO HS PRN Lisinopril 5 Mg Tablet 5 Mg PO DAILY Nifedipine Er (Nifedipine) 60 Mg Tab.er.24 60 Mg PO DAILY Allergies Allergies: Coded Allergies: Sulfa (Sulfonamide Antibiotics) (Verified Adverse Reaction, Intermediate, TINGLING/CREEPY CRAWLING THINGS FEELING ON SKIN, 10/19/18) ROS Review of System CONSTITUTIONAL: No fever or chills EYES: No recent changes SKIN: No rash or itching CARDIOVASCULAR: No chest pain, syncope, palpitations, or edema RESPIRATORY: No SOB or cough GASTROINTESTINAL: No nausea, vomiting or abdominal pain NEUROLOGICAL: No headaches or weakness ENDOCRINE: No cold or heat intolerance GENITOURINARY: No urgency or frequency of urination MUSCULOSKELETAL: No back pain or joint pain LYMPHATICS: No enlarged lymph nodes PSYCHIATRIC: No anxiety or depression Physical Exam Physical Exam GENERAL: No apparent distress. Alert and oriented. HEENT: Head normocephalic, atraumatic. NECK: Supple LUNGS: Clear to auscultation. HEART: RRR, S1, S2 present, pulses intact ABDOMEN: Soft, positive bowel sounds. EXTREMITIES: No cyanosis or edema. NEUROLOGIC: Normal speech, normal tone PSYCHIATRIC: Normal affect, normal mood. SKIN: No ulceration. Vitals VITALS Vital Signs Date Time Temp Pulse Resp B/P (MAP) Pulse Ox O2 Delivery O2 Flow Rate FiO2 10/19/18 15:06 96 Nasal Cannula 1.5 10/19/18 12:30 98.4 91 18 135/74 (94) 98.4 Labs Labs Laboratory Tests Test 10/19/18 11:11 Glucose (Fingerstick) 255 mg/dL (70-99) Laboratory Tests Test 10/19/18 11:11 Glucose (Fingerstick) 255 mg/dL (70-99) Assessment/Plan Assessment/Plan Assessment: Hyperglycemia Benign Essential HTN BPH Insomnia Plan: place on SSI for now. check a1c. continue lisinopril, procardia for BP control ASA okay to start per sx elavil for sleep thank you kindly for consult. will gladly follow along. SIMONA TORRES MD Oct 19, 2018 16:02
[2018-10-19] MEDS ORDERED: DEXTROSE 50% 25 GM / 50ML DISP.SYRIN. IV PRN (17:45)
[2018-10-19] MEDS: INSULIN LISPRO 300 UNITS/3 ML INSULN.PEN. SQ SCH (18:00)
[2018-10-19] MEDS ORDERED: TAMSULOSIN 0.4 MG CAP.ER.24H. PO SCH (21:00)
[2018-10-19] MEDS ORDERED: AMITRIPTYLINE HCL 50 MG TABLET PO SCH (21:00)
[2018-10-19] MEDS: BENZOCAINE/MENTHOL LOZENGE. PO PRN (21:11)
[2018-10-20 03:00] VITALS: BP 138/86
[2018-10-20 06:55] LABS: CALCIUM 8.9 mg/dL (8.5-10.1); GFR 74.5
[2018-10-20 07:30] VITALS: BP 155/82
[2018-10-20] MEDS ORDERED: ASPIRIN ENTERIC COATED 81 MG TABLET.DR. PO SCH (08:00)
[2018-10-20] MEDS: INSULIN LISPRO 300 UNITS/3 ML INSULN.PEN. SQ SCH ×2 (08:00→12:00)
--- NOTE | 2018-10-20 08:56 | DISCH ---
DISCHARGE INSTRUCTIONS Condition on Discharge Condition on Discharge: Stable Activity After Discharge Activity Instructions for Disc: Activity as tolerated Other activity instructions: ok to shower, can leave incision uncovered Bathing Instructions: No Tub Bath until see Lifting Instructions after Dis: No heavy lifting (20 lbs), No pulling or pushing (20 lbs) Driving Instructions after Dis: Do not drive (while taking pain medication ) Diet after Discharge Diet after Discharge: Regular Wound Incision Care Wound/Incision Care: May get incision wet, No wound care needed Contacting the after DC Call your doctor for: Concerns you may have Follow-Up Follow up with: Dr Kathleen 2 weeks, call to schedule [phone] IRISH CARIAS APRN Oct 20, 2018 08:56
[2018-10-20] MEDS ORDERED: OXYC1TAB15 PO (08:58)
[2018-10-20] MEDS ORDERED: LISINOPRIL 5 MG TABLET. PO SCH (09:00)
--- NOTE | 2018-10-20 09:02 | PDOC ---
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 10/20/18 0902: SURGICAL PROGRESS NOTE Subjective Tolerating diet ambulating pain managed urinating Vital Signs Vital Signs Date Time Temp Pulse Resp B/P (MAP) Pulse Ox O2 Delivery O2 Flow Rate FiO2 10/20/18 07:30 98.1 68 20 155/82 (106) 96 Nasal Cannula 98.1 10/19/18 16:06 1.0 I&O Intake and Output 10/20/18 07:01 Intake Total 1650 ml Output Total 2150 ml Balance -500 ml Intake IV Total 1650 ml Output Urine Total 2125 ml Estimated Blood Loss 25 ml # Voids 3 General: Alert, Oriented X3, Cooperative, No acute distress Abdomen: Soft, Other (yared groins dressings dry, miminal swelling ) Labs Laboratory Tests Test 10/19/18 11:11 10/19/18 17:10 10/19/18 21:18 10/20/18 04:20 Glucose (Fingerstick) 255 mg/dL (70-99) 193 mg/dL (70-99) 197 mg/dL (70-99) Sodium Level 135 mmol/L (136-145) Potassium Level 4.0 mmol/L (3.5-5.1) Chloride Level 98 mmol/L (98-107) Carbon Dioxide Level 28 mmol/L (21-32) Anion Gap 9 (6-14) Blood Urea Nitrogen 15 mg/dL (8-26) Creatinine 1.0 mg/dL (0.7-1.3) Estimated GFR (Cockcroft-Gault) 74.5 Glucose Level 140 mg/dL (70-99) Calcium Level 8.9 mg/dL (8.5-10.1) Test 10/20/18 07:30 Glucose (Fingerstick) 132 mg/dL (70-99) Laboratory Tests Test 10/19/18 11:11 10/19/18 17:10 10/19/18 21:18 10/20/18 04:20 Glucose (Fingerstick) 255 mg/dL (70-99) 193 mg/dL (70-99) 197 mg/dL (70-99) Sodium Level 135 mmol/L (136-145) Potassium Level 4.0 mmol/L (3.5-5.1) Chloride Level 98 mmol/L (98-107) Carbon Dioxide Level 28 mmol/L (21-32) Anion Gap 9 (6-14) Blood Urea Nitrogen 15 mg/dL (8-26) Creatinine 1.0 mg/dL (0.7-1.3) Estimated GFR (Cockcroft-Gault) 74.5 Glucose Level 140 mg/dL (70-99) Calcium Level 8.9 mg/dL (8.5-10.1) Test 10/20/18 07:30 Glucose (Fingerstick) 132 mg/dL (70-99) Assessment/Plan s/p bila ing hernia repair home STEVEN JACKMAN MD 10/20/18 1312: SURGICAL PROGRESS NOTE Assessment/Plan Agree with above IRISH CARIAS APRN Oct 20, 2018 09:02 STEVEN JACKMAN MD Oct 20, 2018 13:12
[2018-10-20] MEDS: BENZOCAINE/MENTHOL LOZENGE. PO PRN (09:04)
--- NOTE | 2018-10-20 09:05 | PDOC3 ---
Discharge Summary Visit Information Date of Admission: Oct 19, 2018 Date of Discharge: Oct 20, 2018 Admitting Diagnosis: bilateral inguinal hernias Final Diagnosis bilateral inguinal hernias Brief Hospital Course Allergies Allergies Coded Allergies Type Severity Reaction Last Updated Verified Sulfa (Sulfonamide Antibiotics) Adverse Reaction Intermediate TINGLING/CREEPY CRAWLING THINGS FEELING ON SKIN 10/19/18 Yes Vital Signs Vital Signs Date Time Temp Pulse Resp B/P (MAP) Pulse Ox O2 Delivery O2 Flow Rate FiO2 10/20/18 07:30 98.1 68 20 155/82 (106) 96 Nasal Cannula 98.1 10/19/18 16:06 1.0 Lab Results Laboratory Tests Test 10/19/18 11:11 10/19/18 17:10 10/19/18 21:18 10/20/18 04:20 Glucose (Fingerstick) 255 mg/dL (70-99) 193 mg/dL (70-99) 197 mg/dL (70-99) Sodium Level 135 mmol/L (136-145) Potassium Level 4.0 mmol/L (3.5-5.1) Chloride Level 98 mmol/L (98-107) Carbon Dioxide Level 28 mmol/L (21-32) Anion Gap 9 (6-14) Blood Urea Nitrogen 15 mg/dL (8-26) Creatinine 1.0 mg/dL (0.7-1.3) Estimated GFR (Cockcroft-Gault) 74.5 Glucose Level 140 mg/dL (70-99) Calcium Level 8.9 mg/dL (8.5-10.1) Test 10/20/18 07:30 Glucose (Fingerstick) 132 mg/dL (70-99) Laboratory Tests Test 10/19/18 11:11 10/19/18 17:10 10/19/18 21:18 10/20/18 04:20 Glucose (Fingerstick) 255 mg/dL (70-99) 193 mg/dL (70-99) 197 mg/dL (70-99) Sodium Level 135 mmol/L (136-145) Potassium Level 4.0 mmol/L (3.5-5.1) Chloride Level 98 mmol/L (98-107) Carbon Dioxide Level 28 mmol/L (21-32) Anion Gap 9 (6-14) Blood Urea Nitrogen 15 mg/dL (8-26) Creatinine 1.0 mg/dL (0.7-1.3) Estimated GFR (Cockcroft-Gault) 74.5 Glucose Level 140 mg/dL (70-99) Calcium Level 8.9 mg/dL (8.5-10.1) Test 10/20/18 07:30 Glucose (Fingerstick) 132 mg/dL (70-99) Brief Hospital Course Mr. Bach is a 68 old male who underwent Repair of bilateral inguinal hernias with mesh. Postoperatively tolerating diet, pain managed, urinating, and ready to discharge home. He was evaluated by the hospitalist service while inpatient for medical management Discharge Information Condition at Discharge: Stable Follow Up: Weeks (2) Disposition/Orders: D/C to Home Scheduled Amitriptyline Hcl (Amitriptyline Hcl) 50 Mg Tablet, 50 MG PO HS for INSOMNIA , ( Reported) Entered as Reported by: SHERYL GRIMES on 10/17/1845 Last Taken: Unknown Dose on 10/18/18 Last Action: Continued on 10/19/18953 by STEVEN JACKMAN Lisinopril (Lisinopril) 5 Mg Tablet, 5 MG PO DAILY for FOR HYPERTENSION, #30 Ref 0 (Reported) Entered as Reported by: GIORGI TOMLINSON on 03/26/171335 Last Taken: Unknown Dose on 10/18/18 Last Action: Converted on 10/19/18953 by STEEVN JACKMAN Nifedipine (Nifedipine Er) 60 Mg Tab.er.24, 60 MG PO DAILY, (Reported) Entered as Reported by: GIORGI TOMLINSON on 03/26/171335 Last Taken: Unknown Dose on 10/19/18 0545 Last Action: Converted on 10/19/18953 by STEVEN JACKMAN Tamsulosin Hcl (Tamsulosin Hcl) 0.4 Mg Cap.er.24h, 0.4 MG PO HS, (Reported) Entered as Reported by: GIORGI TOMLINSON on 03/26/17 133 Last Taken: Unknown Dose on 10/18/18 Last Action: Continued on 10/19/18953 by STEVEN JACKMAN Scheduled PRN Oxycodone/Apap 5-325 (Percocet 5-325 Mg Tablet ) 1 Each Tablet, 1 TAB PO PRN Q4HRS PRN for MILD PAIN, 1ST CHOICE, #30 Ref 0 Prescribed by: Irish Nolen on 10/20/18 0858 Tramadol Hcl (Tramadol Hcl) 50 Mg Tablet, 50 MG PO HS PRN for PAIN, (Reported) Entered as Reported by: GIORGI TOMLINSON on 03/26/171335 Last Taken: Unknown Dose on 10/18/18 Last Action: HELD on 10/19/18 09 by STEVEN JACKMAN Miscellaneous Medications Aspirin (Aspir 81) 81 Mg Tablet.dr, 81 MG PO, (Reported) Entered as Reported by: GIORGI TOMLINSON on 03/26/171335 Last Taken: Unknown Dose on 10/11/18 Last Action: Continued on 10/19/18953 by IRISH LEONG APRN Oct 20, 2018 09:05
[2018-10-20] MEDS: oxyCODONE/APAP 5/325 1 TAB TABLET PO PRN (10:27)
[2018-10-20 11:02] VITALS: BP 143/84
--- NOTE | 2018-10-20 12:30 | NUR ---
Pt discharging home with self care. Discharge instructions and prescriptions discussed. Pt verbalized understanding. IV removed. VSS. Pt dressed himself. Will shower at home. All belongings carried by son. Taken via wheelchair to main entrance and was secured in truck with .
--- NOTE | 2018-10-20 15:09 | PATHOLOGY ---
[facility] Accession Number: [id number] . 01 Material submitted: . PART A: LEFT INGUINAL HERNIA SAC PART B: RIGHT INGUINAL CORD LIPOMA . 01 Clinical history: . Hernia . 02 Diagnosis: A. Segment of mesothelial-lined fibromembranous and adipose tissue, left inguinal hernia repair: - Hernia sac showing focal reactive mesothelial hyperplasia and submesothelial fibrosis. . B. Segment of fibroadipose tissue, right inguinal hernia repair: - Consistent with lipoma of cord. ([facility]:[place]; 10/20/2018) QMS/10/20/2018 . 02 Electronically signed: . Artur Fraire MD, Pathologist NPI- [id number] . 01 Gross description: . A. The specimen is received in formalin, labeled "Yoel Bach, left inguinal hernia sac", is a fibromembranous sac measuring 7.7 x 3.6 cm with an average 0.1 cm wall. The external surface is irregular and has few areas of attached adipose tissue with the internal lining smooth. No discrete nodules or masses are identified. [employer] Compl[employer]st tissue is submitted in A1. . B. The specimen is received in formalin, labeled "Yoel Bach, right inguinal cord lipoma", is a yellow lobulated adipose tissue covered by a thin wei-white membrane measuring 9.4 x 3.2 x 0.7 cm. Sectioning reveals yellow, lobulated cut surface with no discrete hemorrhage are necrosis. Customs Compliance Analyst tissue is submitted in B1-B2. ([facility] [place]; 10/19/2018) SHS/SHS . 02 Pathologist provided ICD-10: K40.90, D17.6 . 02 CPT . 499980, 131958 Specimen Comment: A courtesy copy of this report has been sent to Specimen Comment: [phone], . Specimen Comment: Report sent to / DR EDMONDSON Performed at: 01 [place] [id number] [id number] MD Anish Figueroa MD Phone: [phone] Performed at: [address] [facility] [address] [place], [place] [id number] MD Artur Fraire MD Phone: [phone]
--- NOTE | 2018-10-20 16:28 | NUR ---
SW following. Discussed with RN, RN advised no SW needs at this time. Anticipates pt will dc home today. No further SW needs.
--- NOTE | 2018-10-20 16:32 | PDOC ---
PROGRESS NOTES Chief Complaint Chief Complaint doing well this AM. no complaints. sugars stable. going home today. History of Present Illness History of Present Illness Assessment: Hyperglycemia secondary to hx of pre-DM and stress of sx Benign Essential HTN BPH Insomnia Plan: place on SSI for now with sugars stable. a1c pending. recommend diet control and life style modification. no initiation of meds while inpatient. follow up with PCP continue lisinopril, procardia for BP control ASA okay to start per sx elavil for sleep thank you kindly for consult. will gladly follow along. Vitals Vitals Vital Signs Date Time Temp Pulse Resp B/P (MAP) Pulse Ox O2 Delivery O2 Flow Rate FiO2 10/20/18 11:27 Room Air 10/20/18 11:02 98.2 75 18 143/84 (103) 95 98.2 10/19/18 16:06 1.0 Physical Exam General: Alert, Oriented X3, Cooperative, No acute distress Abdomen: Soft, Other (yared groins dressings dry, miminal swelling ) Labs LABS Laboratory Tests Test 10/19/18 17:10 10/19/18 21:18 10/20/18 04:20 10/20/18 07:30 Glucose (Fingerstick) 193 mg/dL (70-99) 197 mg/dL (70-99) 132 mg/dL (70-99) Sodium Level 135 mmol/L (136-145) Potassium Level 4.0 mmol/L (3.5-5.1) Chloride Level 98 mmol/L (98-107) Carbon Dioxide Level 28 mmol/L (21-32) Anion Gap 9 (6-14) Blood Urea Nitrogen 15 mg/dL (8-26) Creatinine 1.0 mg/dL (0.7-1.3) Estimated GFR (Cockcroft-Gault) 74.5 Glucose Level 140 mg/dL (70-99) Calcium Level 8.9 mg/dL (8.5-10.1) Comment Review of Relevant I have reviewed the following items laura (where applicable) has been applied. Labs Laboratory Tests Test 10/19/18 11:11 10/19/18 17:10 10/19/18 21:18 10/20/18 04:20 Glucose (Fingerstick) 255 mg/dL (70-99) 193 mg/dL (70-99) 197 mg/dL (70-99) Sodium Level 135 mmol/L (136-145) Potassium Level 4.0 mmol/L (3.5-5.1) Chloride Level 98 mmol/L (98-107) Carbon Dioxide Level 28 mmol/L (21-32) Anion Gap 9 (6-14) Blood Urea Nitrogen 15 mg/dL (8-26) Creatinine 1.0 mg/dL (0.7-1.3) Estimated GFR (Cockcroft-Gault) 74.5 Glucose Level 140 mg/dL (70-99) Calcium Level 8.9 mg/dL (8.5-10.1) Test 10/20/18 07:30 Glucose (Fingerstick) 132 mg/dL (70-99) Laboratory Tests Test 10/19/18 17:10 10/19/18 21:18 10/20/18 04:20 10/20/18 07:30 Glucose (Fingerstick) 193 mg/dL (70-99) 197 mg/dL (70-99) 132 mg/dL (70-99) Sodium Level 135 mmol/L (136-145) Potassium Level 4.0 mmol/L (3.5-5.1) Chloride Level 98 mmol/L (98-107) Carbon Dioxide Level 28 mmol/L (21-32) Anion Gap 9 (6-14) Blood Urea Nitrogen 15 mg/dL (8-26) Creatinine 1.0 mg/dL (0.7-1.3) Estimated GFR (Cockcroft-Gault) 74.5 Glucose Level 140 mg/dL (70-99) Calcium Level 8.9 mg/dL (8.5-10.1) Medications Current Medications Bacitracin 80738 unit/Sodium Chloride 500 ml @ 500 mls/hr 1X ONCE IRR Last administered on 10/19/18at 08:05; Start 10/19/18 at 06:00; Stop 10/19/18 at 06:59; Status DC Ondansetron HCl (Zofran) 4 mg PRN Q6HRS PRN IV NAUSEA/VOMITING; Start 10/19/18 at 07:00; Stop 10/20/18 at 06:59; Status DC Fentanyl Citrate (Fentanyl 2ml Vial) 25 mcg PRN Q5MIN PRN IV MILD PAIN; Start 10/19/18 at 07:00; Stop 10/20/18 at 06:59; Status DC Fentanyl Citrate (Fentanyl 2ml Vial) 50 mcg PRN Q5MIN PRN IV MODERATE TO SEVERE PAIN Last administered on 10/19/18at 10:54; Start 10/19/18 at 07:00; Stop at 06:59; Status DC Morphine Sulfate (Morphine Sulfate) 1 mg PRN Q10MIN PRN IV SEVERE PAIN; Start 10/19/18 at 07:00; Stop 10/20/18 at 06:59; Status DC Ringer's Solution 1,000 ml @ 30 mls/hr Q24H IV Last administered on 10/19/18at 06:37; Start 10/19/18 at 07:00; Stop 10/19/18 at 18:59; Status DC Lidocaine HCl (Xylocaine-Mpf 1% 2ml Vial) 2 ml PRN 1X PRN ID IV START; Start at 07:00; Stop 10/20/18 at 06:59; Status DC Hydromorphone HCl (Dilaudid) 0.5 mg PRN Q10MIN PRN IV SEV PAIN, Second choice; Start 10/19/18 at 07:00; Stop 10/20/18 at 06:59; Status DC Prochlorperazine Edisylate (Compazine) 5 mg PACU PRN PRN IV NAUSEA, MRX1; Start 10/19/18 at 07:00; Stop 10/20/18 at 06:59; Status DC Cefazolin Sodium/ Dextrose 50 ml @ As Directed STK-MED ONCE IV ; Start 10/19/18 at 06:39; Stop 10/19/18 at 06:40; Status DC Scopolamine (Transderm-Scop) 1 patch Q3DAYS TD ; Start 10/19/18 at 07:00; Stop at 06:59; Status DC Bupivacaine HCl/ Epinephrine Bitart (Sensorcain-Mpf Epi 0.5%-1:[id number]) 30 ml STK -MED ONCE .ROUTE Last administered on 10/19/18at 08:10; Start 10/19/18 at 06:57; Stop 10/19/18 at 06:59; Status DC Propofol 20 ml @ As Directed STK-MED ONCE IV ; Start 10/19/18 at 07:05; Stop 10/19 at 07:06; Status DC Lidocaine HCl (Lidocaine Pf 2% Vial) 5 ml STK-MED ONCE .ROUTE ; Start 10/19/18 at 07:05; Stop 10/19/18 at 07:06; Status DC Succinylcholine Chloride (Anectine) 200 mg STK-MED ONCE .ROUTE ; Start 10/19/18 at 07:05; Stop 10/19/18 at 07:06; Status DC Rocuronium [place] (Zemuron) 50 mg STK-MED ONCE .ROUTE ; Start 10/19/18 at 07:05 ; Stop 10/19/18 at 07:07; Status DC Fentanyl Citrate (Fentanyl 2ml Vial) 100 mcg STK-MED ONCE .ROUTE ; Start at 07:05; Stop 10/19/18 at 07:07; Status DC Dexamethasone Sodium Phosphate (Decadron) 20 mg STK-MED ONCE .ROUTE ; Start 10/19 at 07:44; Stop 10/19/18 at 07:46; Status DC Ondansetron HCl (Zofran) 4 mg STK-MED ONCE .ROUTE ; Start 10/19/18 at 07:44; Stop 10/19/18 at 07:46; Status DC Desflurane (Suprane) 30 ml STK-MED ONCE IH ; Start 10/19/18 at 07:44; Stop at 07:46; Status DC Phenylephrine HCl (PHENYLEPHRINE in 0.9% NACL PF) 1 mg STK-MED ONCE IV ; Start 10/19/18 at 08:01; Stop 10/19/18 at 08:04; Status DC Ephedrine Sulfate (ePHEDrine PF IN SALINE SYRINGE) 50 mg STK-MED ONCE IV ; Start 10/19/18 at 08:06; Stop 10/19/18 at 08:08; Status DC Cefazolin Sodium/ Dextrose 50 ml @ 100 mls/hr 1X ONCE IV ; Start 10/19/18 at 08 :30; Stop 10/19/18 at 08:59; Status DC Neostigmine Methylsulfate (Bloxiverz) 10 mg STK-MED ONCE .ROUTE ; Start 10/19/18 at 08:22; Stop 10/19/18 at 08:23; Status DC Glycopyrrolate (Robinul) 1 mg STK-MED ONCE .ROUTE ; Start 10/19/18 at 08:22; Stop 10/19/18 at 08:24; Status DC Fentanyl Citrate (Fentanyl 2ml Vial) 100 mcg STK-MED ONCE .ROUTE ; Start at 08:50; Stop 10/19/18 at 08:52; Status DC Sodium Chloride (Normal Saline Flush) 3 ml QSHIFT PRN IV AFTER MEDS AND BLOOD DRAWS; Start 10/19/18 at 10:00 Sodium Chloride 1,000 ml @ 80 mls/hr [id number] IV Last administered on 10/19/18at 12:53; Start 10/19/18 at 09:50; Stop 10/19/18 at 19:43; Status DC Oxycodone/ Acetaminophen (Percocet 5/325) 1 tab PRN Q4HRS PRN PO MILD PAIN, 1ST CHOICE; Start 10/19/18 at 10:00 Oxycodone/ Acetaminophen (Percocet 5/325) 2 tab PRN Q4HRS PRN PO MODERATE PAIN , SEVERE PAIN Last administered on 10/20/18at 10:27; Start 10/19/18 at 10:00 Hydromorphone HCl (Dilaudid) 0.2 mg PRN Q1HR PRN IV PAIN; Start 10/19/18 at 10: 00 Ondansetron HCl (Zofran) 4 mg PRN Q6HRS PRN IV NAUESA, 1ST CHOICE; Start at 10:00 Amitriptyline HCl (Elavil) 50 mg HS PO Last administered on 10/19/18at 21:11; Start 10/19/18 at 21:00 Aspirin (Ecotrin) 81 mg DAILY08 PO Last administered on 10/20/18at 09:04; Start 10/20/18 at 08:00 Tamsulosin HCl (Flomax) 0.4 mg HS PO Last administered on 10/19/18at 21:11; Start 10/19/18 at 21:00 Lisinopril (Prinivil) 5 mg DAILY PO Last administered on 10/20/18at 09:04; Start 10/20/18 at 09:00 Nifedipine (Procardia Xl) 60 mg DAILY PO Last administered on 10/20/18at 09:04; Start 10/20/18 at 09:00 Influenza Virus Vaccine (Afluria Trivalent [id number] Syringe) 0.5 ml ONCE ONCE VAX IM Last administered on 10/20/18at 12:52; Start 10/19/18 at 13:00; Stop at 13:01; Status DC Insulin Human Lispro (HumaLOG) 0-5 UNITS TIDWMEALS SQ ; Start 10/19/18 at 18:00 Dextrose (Dextrose 50%-Water Syringe) 12.5 gm PRN Q15MIN PRN IV SEE COMMENTS; Start 10/19/18 at 17:45 Throat Lozenges (Cepacol Sore Throat Lozenge) 1 scott PRN Q2HRS PRN PO SORE THROAT Last administered on 10/20/18at 09:04; Start 10/19/18 at 21:00 Hydralazine HCl (Apresoline) 50 mg PRN TID PRN PO ELEVATED BP, SEE COMMENTS Last administered on 10/19/18at 23:56; Start 10/19/18 at 23:45 Active Scripts Active Percocet 5-325 Mg Tablet (Oxycodone/Acetaminophen) 1 Each Tablet 1 Tab PO PRN Q4HRS PRN Reported Amitriptyline Hcl 50 Mg Tablet 50 Mg PO HS Aspir 81 (Aspirin) 81 Mg Tablet.dr 81 Mg PO Tamsulosin Hcl 0.4 Mg Cap.er.24h 0.4 Mg PO HS Tramadol Hcl 50 Mg Tablet 50 Mg PO HS PRN Lisinopril 5 Mg Tablet 5 Mg PO DAILY Nifedipine Er (Nifedipine) 60 Mg Tab.er.24 60 Mg PO DAILY Vitals/I & O Vital Sign - Last 24 Hours 10/19/18 10/19/18 10/19/18 10/19/18 19:00 19:25 20:20 23:00 Temp 98.5 98.7 98.5 98.7 Pulse 111 102 Resp 18 18 B/P (MAP) 157/96 (116) 170/102 (124) Pulse Ox 96 95 O2 Delivery Nasal Cannula Room Air Room Air Nasal Cannula 10/19/18 10/20/18 10/20/18 10/20/18 23:56 03:00 07:30 08:00 Temp 98.5 98.1 98.5 98.1 Pulse 102 79 68 Resp 18 20 B/P (MAP) 170/102 138/86 (103) 155/82 (106) Pulse Ox 95 96 O2 Delivery Nasal Cannula Nasal Cannula Room Air 10/20/18 10/20/18 10/20/18 10/20/18 09:04 09:04 10:27 11:02 Temp 98.2 98.2 Pulse 68 68 75 Resp 18 B/P (MAP) 155/82 155/82 143/84 (103) Pulse Ox 95 O2 Delivery Room Air Room Air 10/20/18 11:27 O2 Delivery Room Air Intake and Output 10/19/18 10/19/18 10/20/18 15:01 23:01 07:01 Intake Total 1650 ml Output Total 25 ml 575 ml 1550 ml Balance 1625 ml -575 ml -1550 ml SIMONA TORRES MD Oct 20, 2018 16:32
[2018-10-20 20:13] LABS: HEMOGLOBIN A1C 7.2 % (4.8-5.6)
== END 2018-10-20 13:00 | disposition home or self-care (01) ==
LOC: SURG 05:59 → 4 NORTH 10:18
PROVIDERS: ADMIT Surgery; ATTEND Surgery
DX: K40.20 Bilateral inguinal hernia, without obstruction or gangrene, not specified as recurrent (principal); E11.65 Type 2 diabetes mellitus with hyperglycemia; I10 Essential (primary) hypertension; G47.00 Insomnia, unspecified; D17.6 Benign lipomatous neoplasm of spermatic cord; N40.0 Benign prostatic hyperplasia without lower urinary tract symptoms; Z79.899 Other long term (current) drug therapy
CPT/HCPCS: 36415; 49505; 80048; 82962; 83036; 88302; 90471; 90756; 96360; 96361; A7015; C1781; G0378; G0379; J0330; J0690; J1100; J1815; J2001; J2370; J2405; J2704; J2710; J3010; J3490; J7040; J7120; Q2035